=== PATIENT | female | born 1960 | race Caucasian/White ===

== ENCOUNTER 2024-04-05 14:29 | Emergency (ER) | payer MEDICARE, SELFPAY ==
[2024-04-05 14:57] VITALS: BP 96/58; PULSE 94; RESP 15; TEMP 36.3; O2SAT 96
--- NOTE | 2024-04-05 15:03 | ED.FEMALEGU ---
HPI - Female Genitourinary General Chief complaint: Urogenital-Female Stated complaint: Bladder infection Time Seen by Provider: 04/05/24 15:06 Source: patient, RN notes reviewed and old records reviewed Mode of arrival: ambulatory Limitations: no limitations History of Present Illness HPI Narrative: 63 year old female presents to [facility] care with complaints of 4 day history of burning with urination and decreased output. Patient reports that she has had UTI's in the past. Patient reports that does not have any lower back pain or any CVA tenderness, denies any suprapubic pressure. Patient voices no vaginal discharge or any concern for STD's. Patient reports that she does have kidney disease stage III.Patient reports no nausea and vomiting, denies any fevers. MD elicited complaint: dysuria and other (viding decreased amounts) Pertinent past history: other (past UTI's) Onset (ago): day(s) (4) Location of symptoms: urethra Vaginal discharge: none Treatment prior to arrival: none Related Data Home Medications Medication Instructions Recorded Confirmed atorvastatin 40 mg tablet mg 04/05/24 hydrocodone 5 mg-acetaminophen 325 tablet 04/05/24 mg tablet levothyroxine 50 mcg tablet mcg 04/05/24 Allergies Allergy/AdvReac Type Severity Reaction Status Date / Time aspirin Allergy Rash Verified 04/05/24 15:00 Review of Systems Review of Systems: CONSTITUTIONAL: Denies fever, chills, or sweats. CARDIOVASCULAR: Denies chest pain, palpitations, or edema. RESPIRATORY: Denies cough or dyspnea. GASTROINTESTINAL: Denies abdominal pain, nausea, vomiting, or diarrhea. GENITOURINARY: Reports dysuria, frequency, urgency voiding in small amounts. Denies flank pain or hematuria. SKIN: Denies rash or itching. MUSCULOSKELETAL: Denies back pain or myalgia. Denies CVA tenderness NEUROLOGIC: Denies headache All systems reviewed & are unremarkable except as noted in HPI and below [facility] Past Medical History Medical History (Updated 04/06/24 @ 18:00 by Padma Clay NP) Anxiety and depression CHF (congestive heart failure), NYHA class II Chronic kidney disease, stage III (moderate) COPD (chronic obstructive pulmonary disease) reports never smoked Elevated cholesterol Hypothyroidism Osteoarthritis of right hip Social History Social History (Updated 04/06/24 @ 17:54 by Padma Clay NP) Smoking status: Never smoker Substance use type: does not use Gender identity (if verbalized by the patient): Female Comments At time of signature, agree with nursing past medical, surgical, social and family history. There is no relevant family history pertinent to the presenting complaint Exam Narrative: GENERAL: Well-appearing, well-nourished, and in no acute distress. HEAD: Normocephalic, atraumatic. NECK: Supple.no lymphadenopathy CHEST: Clear to auscultation. No respiratory distress.SAO2 96% on room air HEART: Regular rate and rhythm. No murmur heard. Normal peripheral pulses. ABDOMEN: Soft, nontender, nondistended, normal active bowel sounds. No CVA tenderness urinary burning with voiding in small amounts, no CVA tenderness EXTREMITIES: Normal range of motion. No edema. SKIN: Warm, dry, no rash. NEURO: No focal deficits. Alert and oriented x3. Course Course Emergency Course: Patient is aware of diagnosis, understands and agrees to treatment plan.? Anticipatory guidance given.? Patient agrees to follow-up as directed and is aware of reasons to seek care at the emergency department. Portions of this record may have been created with voice recognition software Level of Care: Express Care Visit Vital Signs Vital signs: Vital Signs Temperature 36.3 C L 04/05/24 14:57 Pulse Rate 94 04/05/24 14:57 Respiratory Rate 15 04/05/24 14:57 Blood Pressure 96/58 L 04/05/24 14:57 Pulse Oximetry 96 04/05/24 14:57 Oxygen Delivery Room Air 04/05/24 14:57 Temperature 36.3 C L 04/05/24 14:57 Pulse Rate
[2024-04-05 15:32] LABS: EDUAAPPEAR Clear; EDUABILI 1+ (Negative); EDUABLOOD 2+ (Negative); EDUACOLOR1 Yellow; EDUAGLUCOSE Negative (Negative); EDUAKETONE Trace (Negative); EDUALEUKO 2+ (Negative); EDUANITRATE Negative (Negative); EDUAPH 5.5; EDUAPROTEIN 1+ (Negative); EDUAUROBILI 0.2
== END 2024-04-05 15:28 | disposition home or self-care (01) ==
PROVIDERS: Emergency Provider Registered Nurse
DX: N39.0 Urinary tract infection, site not specified (principal); I50.9 Heart failure, unspecified; N18.30 Chronic kidney disease, stage 3 unspecified; J44.9 Chronic obstructive pulmonary disease, unspecified; E78.00 Pure hypercholesterolemia, unspecified; E03.9 Hypothyroidism, unspecified; M16.11 Unilateral primary osteoarthritis, right hip
CPT/HCPCS: 81003; 87086; 99203; G0463

== ENCOUNTER 2024-08-27 11:12 | Emergency (ER) | payer MEDICARE, SELFPAY ==
[2024-08-27 11:29] VITALS: BP 88/56; PULSE 72; RESP 18; TEMP 36.5; O2SAT 97
--- OUTSIDE RECORDS SUMMARY | 2024-08-27 11:52 | XMS_ITS | Referral Summary ---
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 Gender Identity Not on file Sexual Orientation Not on file Last Filed Vital Signs Vital Sign Reading Time Taken Comments Blood Pressure 135/66 02/10/2022 8:07 PM CDT Pulse 61 02/10/2022 8:07 PM CDT Temperature 36.6 ??C (97.8 ??F) 02/10/2022 7:20 PM CD T Respiratory Rate 15 02/10/2022 8:07 PM CDT Oxygen Saturation 93% 02/10/2022 8:07 PM CDT Inhaled Oxygen Concentration - - Weight 130.2 kg (287 lb) 02/10/2022 3:01 PM CDT Height 160 cm (5' 3 ) 02/10/2022 3:01 PM CDT Body Mass Index 50.84 02/10/2022 3:01 PM CDT Plan of Treatment Not on file Insurance [employer] MED[employer] PPO [employer] MED[employer] PPO [employer] PPO Care Teams Family Day Care Provider Relationship Specialty [place] [address] [place] [address] PCP - General Nurse Practitioner 02/14/24
--- OUTSIDE RECORDS SUMMARY | 2024-08-27 11:52 | XMS_ITS | Clinical Summary ---
Author Organization [facility] Address [facility] [place] [address] [place] [address] Care Team Providers Care Bolting Machine Operator Name Role Phone Yvette Colon NP Primary Care Provider + [phone] Christ Niño MD Unavailable [phone] Allergies Active Allergy Reactions Criticality Noted Date Comments Aspirin Rash Medium 06/19/2017 Rash Medications albuterol sulfate HFA 108 (90 Base) MCG/ACT inhalerIndications :Chronic obstructive pulmonary disease, unspecified COPD type ([facility] HHS/HCC) Inhale 2 puffs into the lungs every 4 (four) hours as needed for Wheezing or Shortness of breath. Use with spacer. 18 g 3 11/10/19 24 Active ARIPiprazole (ABILIFY) 5 MG tabletIndications: PTSD (post-traumatic stress disorder) Take 1 tablet (5 mg total) by mouth daily. 90 tablet 11/10/19 24 Active atorvastatin (LIPITOR) 40 MG tabletIndications: Chronic congestive heart failure, unspecified heart failure type ([facility]/HCC HHS/HCC),Mixed hyperlipidemia Take 1 tablet (40 mg total) by mouth daily. 90 tablet 3 11/10/19 24 Active carvedilol (COREG) 6.25 MG tabletIndications: Chronic congestive heart failure, unspecified heart failure type ([facility] HHS/HCC) Take 1 tablet (6.25 mg total) by mouth 2 (two) times daily with meals. 180 tablet 3 11/10/19 24 Active diclofenac sodium (VOLTAREN) 1 % gelIndications:Art hritis of right hip Apply 4 g topically 4 (four) times daily. 350 g 3 11/10/19 24 Active levothyroxine (SYNTHROID) 50 MCG tabletIndications: Acquired hypothyroidism Take 1 tablet (50 mcg total) by mouth every morning. 90 tablet 1 11/10/19 24 Active oxybutynin (DITROPAN) 5 MG tabletIndications: Overactive bladder Take 1 tablet (5 mg total) by mouth 2 (two) times daily. 180 tablet 3 11/10/19 24 Active pantoprazole EC (PROTONIX) 40 MG tabletIndications: Gastric reflux Take 1 tablet (40 mg total) by mouth every morning before breakfast. 90 tablet 3 11/10/19 24 Active potassium chloride CR (KLOR-CON M) 20 MEQ tabletIndications: Chronic congestive heart failure, unspecified heart failure type (CMS/HCC HHS/HCC),Chronic kidney disease, unspecified CKD stage Take 1 tablet (20 mEq total) by mouth daily. 90 tablet 1 11/10/19 24 Active Cholecalciferol (VITAMIN D) 125 MCG (5000 UT) CapIndications:Vit henry D deficiency Take 5,000 Units by mouth daily. 90 capsule 1 11/13/19 24 Active cyclobenzaprine (FLEXERIL) 5 MG tablet 04/30/20 24 Active ferrous sulfate, 65 mg elemental, 325 (65 FE) MG tablet daily. Active naloxegol oxalate (MOVANTIK) 25 MG tabletIndications: Drug-induced constipation,Chron ic, continuous use of opioids Take 1 tablet (25 mg total) by mouth every morning before breakfast. 90 tablet 1 05/06/20 24 Active ondansetron (ZOFRAN-ODT) 4 MG disintegrating tabletIndications: Nausea Take 1 tablet (4 mg total) by mouth every 8 (eight) hours as needed for Nausea. 20 tablet 1 05/06/20 24 Active DULoxetine (CYMBALTA) 20 MG capsuleIndications :PTSD (post-traumatic stress disorder) Take 1 capsule (20 mg total) by mouth daily. 90 capsule 1 05/06/20 24 Active tirzepatide (MOUNJARO) 7.5 MG/0.5ML injectionIndicatio ns:Diabetes Mellitus Inject 7.5 mg into the skin every 7 days. Indications: Diabetes 2 mL 08/12/19 25 Active HYDROcodone-acetam inophen (NORCO) 5-325 MG tabletIndications: Chronic Pain Take 1 tablet by mouth every 8 (eight) hours as needed for Pain. Indications: Chronic Pain 90 tablet 08/13/19 25 Active SYMBICORT 160-4.5 MCG/ACT inhalerIndications :Chronic obstructive pulmonary disease, unspecified COPD type ([facility]) Inhale 2 puffs into the lungs 2 (two) times daily. 10.2 g 08/21/19 25 Active valsartan (DIOVAN) 40 MG tabletIndications: Primary hypertension Take 1 tablet (40 mg total) by mouth every morning. 90 tablet 1 08/23/19 25 Active valsartan (DIOVAN) 40 MG tabletIndications: Primary hypertension Take 1 tablet (40 mg total) by mouth every morning. 90 tablet 1 02/12/20 24 025 Discontin ued(Reord er) SYMBICORT 160-4.5 MCG/ACT inhalerIndications :Chronic obstructive pulmonary disease, unspecified COPD type ([facility]) Inhale 2 puffs into the lungs 2 (two) times daily. 10.2 g 06/12/20 24 025 Discontin ued(Reord er) HYDROcodone-acetam inophen (NORCO) 5-325 MG tabletIndications: Chronic Pain Take 1 tablet by mouth every 8 (eight) hours as needed for Pain. Indications: Chronic Pain 90 tablet 07/15/20 24 025 Discontin ued(Reord er) tirzepatide (MOUNJARO) 7.5 MG/0.5ML injectionIndicatio ns:Diabetes Mellitus Inject 7.5 mg into the skin every 7 days. Indications: Diabetes 2 mL 07/15/20 24 025 Discontin ued(Reord er) Active Problems Problem Noted Date Diagnosed Date Hiatal hernia 08/09/2024 Nausea 05/06/2024 Ileus ([facility]) 05/06/2024 Thickened endometrium 05/06/2024 Lesion of left white earth kidney 05/06/2024 Lung nodules 05/06/2024 Drug-induced constipation 05/06/2024 Chronic, continuous use of opioids 05/06/2024 Type 2 diabetes mellitus wit h hyperglycemia, without long-term current use of insulin ([facility]) 02/19/2024 Lumbar radiculopathy 02/02/2024 Paresthesia of both lower extremities 02/02/2024 Numbness and tingling of both lower extremities 01/16/2024 Weakness of both lower extremities 01/16/2024 Functional tremor 11/10/2023 Chronic kidney disease, unspecified CKD stage Chronic obstructive pulmonar y disease, unspecified COPD type ([facility]) 11/10/2023 Morbid obesity with BMI of 4 0.0-44.9, adult ([facility]) 11/10/2023 Assessment & Plan (01/16/2024 6:14 PM CDT): We discussed the adverse effects of weight on osteoarthritis. For every 1 pound loss, 4 to 6 pounds of stress is relieved from the knee, slightly more at the ankle and slightly less at the hip. We discussed low carbohydrate diet to help with weight loss. 80% of weight loss is through diet. Primary osteoarthritis of right hip 11/10/2023 Assessment & Plan (01/16/2024 6:15 PM CDT): We discussed the risks, benefits, and alternatives. The only thing proven to slow the progression of osteoarthritis is weight loss. Every pound lost relieves 4 to 6 pounds of stress across the hip. We discussed formal physical therapy to help with flexibility, mobility, and strength. We discussed TENS units. Nonsteroidal anti-inflammatories as well as Tylenol and pain medication and their side effects. We discussed steroid injection. We discussed eventual total hip arthroplasty. Recommendation at this time, we're gonna get her set up for an EMG-NCV, MRI to the lumbar spine, and get her started with formal physical therapy. We'll see her back after that. Vitamin D deficiency 11/10/2023 Prediabetes 11/10/2023 Primary hypertension 11/10/2023 Gastric reflux 11/10/2023 CHF (congestive heart failure) ([facility]) 09/08/2023 Acute on chronic systolic heart failure ([facility]) 11/17/2022 Chronic HFrEF (heart failure with reduced ejection fraction) ([facility]) 11/09/2022 Shortness of breath 11/09/2022 Weakness 11/09/2022 Hypotension due to medication 10/28/2021 Hyperlipidemia 10/06/2021 Anemia 07/22/2020 Stage 3a chronic kidney disease ([facility] ) 07/22/2020 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 08/09/2017 Assessment & Plan (08/09/2017 10:51 PM CONSUMER LENDER): Chronic; pt reports compliance - continue home statin Overactive bladder 08/09/2017 Assessment & Plan (08/09/2017 10:52 PM CONSUMER LENDER): Chronic; controlled - Continue from ambulatory PTSD (post-traumatic stress disorder) 08/09/2017 Assessment & Plan (08/09/2017 10:52 PM CONSUMER LENDER): Chronic; well controlled per pt - Continue from ambulatory Hypothyroidism 08/09/2017 Assessment & Plan (08/09/2017 10:52 PM CONSUMER LENDER): Chronic; controlled - Check TSH - Continue home levothyroxine Resolved Problems Problem Noted Date Diagnosed Date Resolved Date Chest pain 09/25/2022 09/27/2022 Chest pain made worse by breathing 08/09/2017 08/11/2017 Assessment & Plan (08/10/2017 12:31 AM CONSUMER LENDER): 56 yo F with PMH of PTSD, CAD with hx of [place] found at the time of a prior Stress test with no stenting or CABG, hypothyroid presents to the ED after 1 week of fatigue and 1 day of constant dull chest pain, substernal, made worse by breathing and with tenderness of palpation of the sternum. She has no DM, Never smoked and unknown paternal hx with negative maternal hx of [place] or Stroke. She is overweight on a statin. Pt has negative D-dimer. Differential includes Costrocondritis, Pain from coughing and acute [place]. - Admit for observation - Trend troponin x 3 - Morphine for Chest pain - Allergic to ASA - Lipids - A1c - NM waking stress test given hx of old [place] in past - Obtain records from [facility] about last Stress test. - O2 as needed Encounters Date Type Department Care Team Description 08/23/2024 Orders Only [facility] [address] [place] [phone] Yvette Colon NP 08/19/2024 10:35 AM CONSUMER LENDER - 08/19/2024 11:59 PM CONSUMER LENDER Hospital Encounter [facility] [address] [place] [address] Yvette Colon, Debbie Patel, PT Low Back Pain Discharge Disposition: Home or Self Care (Routine Discharge) 08/19/2024 Travel 08/15/2024 [facility]phone [facility] - [address], [address] [place] [phone] Iban Rhodes MD Prior Authorization ([id number]) 08/14/2024 Telephone [facility] [address] [place] [address] Ashley Duncan, PT Referral 08/09/2024 2:20 PM CONSUMER LENDER Office Visit [facility] [address] [phone] Iban Rhodes MD New Patient (NEW PATIENT) 08/09/2024 [facility] - [address], [address] [place] [phone] Iban Rhodes MD 08/09/2024 Travel 07/12/2024 7:57 AM CONSUMER LENDER - 07/12/2024 11:59 PM CONSUMER LENDER Hospital Encounter [facility] MRI [address] [place] [address] Yvette Colon NP Discharge Disposition: Home or Self Care (Routine Discharge) 07/12/2024 Travel 07/03/2024 Orders Only [facility] [address] [place] [phone] Yvette Colon NP 06/26/2024 8:45 AM CONSUMER LENDER - 06/26/2024 11:59 PM CONSUMER LENDER [place] [address] [place] [address] Yvette Colon NP Discharge Disposition: Home or Self Care (Routine Discharge) 06/26/2024 Travel 06/13/2024 Telephone [facility] [address] [place] [phone] Yvette Colon, DRY GOODS INSPECTOR Refill Request 06/11/2024 Telephone [facility] [address] [place] [address] Debbie Nolen, [place] Appointment Reminder (See previous call noted) 06/04/2024 2:20 PM CONSUMER LENDER Office Visit [facility] [address] [place] [phone] Yvette Colon NP Follow Up (1 month follow up T2DM) 06/04/2024 11:45 AM CONSUMER LENDER Office Visit [facility] [address] [phone] Christ Niño MD Follow Up; Coronary Artery Disease; CHF 06/04/2024 Travel 06/03/2024 12:41 PM CONSUMER LENDER - 06/03/2024 11:59 PM CONSUMER LENDER Hospital Encounter [facility] [address] [place] [address] Christoph Moreno DO Meyer, Beverly L, PT Back Pain Discharge Disposition: Home or Self Care (Routine Discharge) 06/03/2024 Scan [employer] INFO SRVCS Scanned, [facility] 06/03/2024 Travel 05/28/2024 12:19 PM CONSUMER LENDER - 05/28/2024 11:59 PM CONSUMER LENDER [place] [address] [place] [address] Isaiah, Yvette J, DRY GOODS INSPECTOR Discharge Disposition: Home or Self Care (Routine Discharge) 05/28/2024 Travel 05/27/2024 Telephone [facility] [address] [place] [phone] Yvette Colon NP Medication Request from Last 3 Months Immunizations Name Administration Dates Next Due Fluzone (IIV3, Trivalent, 0. 5 ML Prefilled Syringe) 05/06/2024 Hepatitis A/Hepatitis B(Twinrix) 12/22/2009 Influenza (Generic) 05/08/2012 Influenza Adult (Generic) 06/20/2022,04/2022,07/14/2020, 017 MODERNA COVID-19 (12+) MRNA, LNP-S, PF, 100 MCG/ 0.5 ML DOSE 06/23/2021 PFIZER COVID-19 (12+) MRNA, LNP-S, PF, BOLA-SUCROSE, 30 MCG/0.3 ML (COMIRNATY) 06/04/2024 PFIZER COVID-19 (ORIGINAL FORMULATION, PURPLE CAP) mRNA, LNP-S, PF, 30 MCG/0.3 ML DOSE 12/22/2020,11/28/2020 Family History Medical History Relation Comments Hyperlipidemia Mother Hypertension Mother Diabetes Son Relation Status Comments Father Mother Alive Son Social History Tobacco Use Types Packs/Day Years Used Date Smoking Tobacco: Never Passive Smoke Exposure: Never Smokeless Tobacco: Never Tobacco Cessation:Counseling Given: No Alcohol Use Standard Drinks/Week Comments No 0 (1 standard drink = 0.6 oz pur e alcohol) Humiliation, Afraid, Rape, and Kick questionnair e Answer Date Recorded Within the last year, have y ou been afraid of your partner or ex-partner? No 09/25/2022 Within the last year, have y ou been humiliated or emotionally abused in other ways by your partner or ex-partner? No Within the last year, have y ou been kicked, hit, slapped, or otherwise physically hurt by your partner or ex-partner? No 09/25/2022 Within the last year, have y ou been raped or forced to have any kind of sexual activity by your partner or ex-partner? No 09/25/2022 Social Connection and Isolat ion Panel [NHANES] Answer Date Recorded In a typical week, how many times do you talk on the phone with family, friends, or neighbors? More than three times a week 09/25/2022 How often do you get togethe r with friends or relatives? Once a week 09/25/2022 How often do you attend chur ch or mu-ism services? More than 4 times per year 09/25/2022 Do you belong to any clubs o r organizations such as oriental orthodox groups, unions, fraternal or athletic groups, or school groups? No 09/25/2022 How often do you attend meet ings of the clubs or organizations you belong to? Never 09/25/2022 Are you , , di vorced, , never , or living with a partner? 09/25/2022 AUDIT-C Answer Date Recorded Q1: How often do you have a drink containing alcohol? Never 09/25/2022 Q2: How many drinks containi ng alcohol do you have on a typical day when you are drinking? Patient does not drink Q3: How often do you have si x or more drinks on one occasion? Never 09/25/2022 Overall Financial Resource Strain (CARDIA) Answe r Date Recorded How hard is it for you to pa y for the very basics like food, housing, medical care, and heating? Hard 09/25/2022 PHQ-2 Answer Date Recorded Patient Health Questionnaire-2 Score 0 08/09/2024 [facility] Occupat ional [facility] - Occupational Stress Questionnaire Answer Date Recorded Do you feel stress - tense, restless, nervous, or anxious, or unable to sleep at night because your mind is troubled all the time - these days? Rather much 09/25/2022 Exercise Vital Sign Answer Date Recorde d On average, how many days pe r week do you engage in moderate to strenuous exercise (like a brisk walk)? 0 days 09/25/2022 On average, how many minutes do you engage in exercise at this level? 0 min 09/25/2022 Hunger Vital Sign Answer Date Recorded Within the past 12 months, y ou worried that your food would run out before you got the money to buy more. Sometimes true Within the past 12 months, t he food you bought just didn't last and you didn't have money to get more. Sometimes true 11/2022 PRAPARE - Transportation Answer Date Re corded In the past 12 months, has l ack of transportation kept you from medical appointments or from getting medications? Yes 11/2022 In the past 12 months, has l ack of transportation kept you from meetings, work, or from getting things needed for daily living? Yes 09/25/2022 Housing Stability Vital Sign Answer Anurag e Recorded In the last 12 months, was t here a time when you were not able to pay the mortgage or rent on time? No 09/25/2022 In the last 12 months, how many places have you lived? 2 09/25/2022 In the last 12 months, was t here a time when you did not have a steady place to sleep or slept in a prison (including now)? No 09/25/2022 Comments No Sex and Gender Information Value Date Recorded Sex Assigned at Female 08/14/2024 11:46 AM CONSUMER LENDER Legal Sex Female 4:40 PM CDT Gender Identity Not on file Sexual Orientation Not on file Last Filed Vital Signs Vital Sign Reading Time Taken Comments Blood Pressure 98/60 08/09/2024 2:15 PM CONSUMER LENDER Pulse 85 08/09/2024 2:15 PM CONSUMER LENDER Temperature 36.9 ??C (98.4 ??F) 08/09/2024 2:15 PM CS T Respiratory Rate 18 08/09/2024 2:15 PM CONSUMER LENDER Oxygen Saturation 95% 08/09/2024 2:15 PM CONSUMER LENDER Inhaled Oxygen Concentration - - Weight 113.9 kg (251 lb) 08/09/2024 2:15 PM CONSUMER LENDER Height 172.7 cm (5' 8 ) 08/09/2024 2:15 PM CONSUMER LENDER Body Mass Index 38.16 08/09/2024 2:15 PM CONSUMER LENDER Plan of Treatment Upcoming Encounters Date Type Department Care Team (Latest Contact Info) Description 09/03/2024 10:15 AM CONSUMER LENDER Office Visit [facility] [address] [place] [phone] Christ Niño MD [address] [facility] [address] [place] [phone] 09/03/2024 1:45 PM CONSUMER LENDER Appointment [facility] [address] [place] [address] Yvette Colon, DRY GOODS INSPECTOR [address] [facility] [address] [address] [place] [address] [place] [address] 09/06/2024 1:45 PM CONSUMER LENDER Appointment [facility] [address] [place] [address] Yvette Colon, DRY GOODS INSPECTOR [address] [facility] [address] [facility] [place] [address] [place] [address] [place] [address] 09/09/2024 1:00 PM CONSUMER LENDER Appointment [facility] [address] [place] [address] Yvette Colon, DRY GOODS INSPECTOR [address] [facility] [address] [place] [address] [place] [address] [place] [address] 09/10/2024 2:20 PM CONSUMER LENDER Office Visit [facility] [place] [address] [place] [phone] Yvette Colon, DRY GOODS INSPECTOR [address] [facility] [address] [address] 09/11/2024 11:35 AM CONSUMER LENDER Hospital Encounter [facility] [address] [place] [address] Iban Rhodes MD [address] [address] 09/11/2024 11:35 AM CONSUMER LENDER - 09/11/2024 12:00 PM CONSUMER LENDER Surgery [facility] [address] [place] [address] Iban Rhodes MD [address] [address] EGD 09/12/2024 1:00 PM CONSUMER LENDER Appointment [facility] [address] [place] [address] Yvette Colon, DRY GOODS INSPECTOR [address] [facility] [address] [address] [place] [address] [place] [address] 09/16/2024 1:00 PM CONSUMER LENDER Appointment [facility] [address] [place] [address] Yvette Colon, DRY GOODS INSPECTOR [address] [facility] [address] [address] [place] [address] [place] [address] 09/19/2024 1:45 PM CONSUMER LENDER Appointment [facility] [address] [facility] [address] [place] [address] [place] [address] [place] [address] [place] [address] 09/23/2024 2:00 PM CONSUMER LENDER Appointment [facility] [address] [place] [address] Yvette Colon, MALIA [address] [address] [place] [address] [facility] [place] [address] 09/26/2024 1:00 PM CONSUMER LENDER Appointment [facility] [address] [place] [address] Yvette Colon, MALIA [address] [facility] [place] [address] [place] [address] [facility] [place] [address] 10/04/2024 1:00 PM CDT Appointment [facility] [address] [place] [address] Yvette Colon, MALIA [address] [address] [place] [address] [place] [address] Scheduled Procedures Name Priority Associated Diagnoses Date/Ti me EGD Hiatal hernia 09/11/2024 11:35 AM CONSUMER LENDER Health Maintenance Due Date Last Done Comments Cervical Cancer Screening Pap Smear (Age 30 to 64) Every 3 Years 1961 Colorectal Cancer Screening Colonoscopy (10 Years) 1961 Annual Physical 1964 Pneumococcal Vaccine: Pediatrics (0 to 5 Years) and At-Risk Patients (6 to 64 Years) (1 of 2 - PCV) 1967 Diabetes: Retinopathy Eye Exam 1979 Hepatitis C 1979 Cervical Cancer Screening Pap with HPV Testing (Age 30 to 64) Every 5 Years 1991 Cervical Cancer Screening with HPV 1991 ASCVD LDL 09/27/2023 09/26/2022, 08/10/2017 Lipid Panel 08/01/2024 08/01/2023, 0312/2022, 08/10/2017 Hemoglobin A1C 11/04/2024 05/06/2024, 10/22, 08/01/2023, Additional history exists DTaP, Tdap and Td Vaccines (1 - Tdap) 11/09/2024 Postponed from 1980 (Patient Refused) RSV Immunization or 60+ Years (1 - Risk 60-74 years 1-dose series) 11/09/2024 Postponed fro m 2021 (Patient Refused) Zoster Vaccines (1 of 2) 11/09/2024 Pos tponed from 2011 (Patient Refused) Kidney Health Evaluation 05/06/2025 05/06/2024 Mammogram Screening 06/02/2025 06/02/2023 Influenza Adult Completed 05/06/2024, 05/25, 09/02/2021, Additional history exists COVID-19 Vaccine Completed 06/04/2024, 06/2022, 06/23/2021, Additional history exists PHQ-2 (Physician [place]) Completed 08/09/2024 Meningococcal B Vaccine Aged Out No l onger eligible based on patient's age to complete this topic Meningococcal Vaccine Aged Out No ciro kimberley eligible based on patient's age to complete this topic RSV Immunizations Under 20 Months Aged Out No longer eligible based on patient's age to complete this topic Procedures Procedure Name Priority Date/Time Associated Diagnosis Comments MRI ABD WWO CON Routine 07/12/2024 8:56 AM CONSUMER LENDER Lesion of left white earth kidney CREATININE WHOLE BLOOD Routine 9:26 AM CONSUMER LENDER Lesion of left white earth kidney CT ABD+PEL WWO CON Routine 06/26/2024 9: 25 AM CONSUMER LENDER Lesion of left [place] kidney US PELVIC NON OB COMP TA+TV Routine 05/28/2024 2:24 PM CONSUMER LENDER Thickened endometrium US RETROPERITONEAL COMP Routine 05/28/20 2:24 PM CONSUMER LENDER Lesion of left white earth kidney CT CHEST WO LUNG NOD FLUP Routine 05/28/2024 12:32 PM CONSUMER LENDER Lung nodules HEMOGLOBIN, GLYCOSYLATED Routine 05/06/2024 Type 2 diabetes mellitus with hyperglycemia, without long-term current use of insulin ([facility]/HCC HHS/HCC) LIPID PANEL Routine 09/26/2022 5:06 AM CONSUMER LENDER from Last 3 Months or Most Recently Relevant to Health Maintenance Results * MRI ABD WWO CON (07/12/2024 8:56 AM CONSUMER LENDER) Anatomical Region Laterality Modality Abdomen Magnetic Resonan ce 07/18/2024 12:1 1 PM CONSUMER LENDER Impressions 07/18/2024 12:17 PM CONSUMER LENDER IMPRESSION: Tiny nodule located anterior to the left kidney is separate from the kidney and would represent a benign tiny lymph node in the perinephric fossa. This is stable from 02/19/2024. Tiny benign-appearing probable cyst of the outer mid left kidney and upper pole left kidney. Okay for same MRI follow-up in one year. No evidence of renal tumor. Ordered By: YVETTE COLON Interpreted By: Lorenzo Garnett MD, 07/18/2024 12:11 PM Narrative 07/18/2024 12:17 PM CONSUMER LENDER [facility] [address] [place] [address] Examination: MRI ABD WWO CON Exam time: 07/12/2024 8:00 AM Clinical history: Left renal lesions evaluation Comparison: 06/26/2024, alejo 524, 05/01/2024, 02/19/2024 Technique: MRI abdomen with and without IV contrast. 20 mL MultiHance. Findings: Tiny nodule anterior to the left kidney has a thin fat the nodule from the kidney cortex. This is best seen on 02/19/2024 lumbar spine MRI. This would indicate a small lymph node in the perinephric fossa. Currently, see series 5 image 21-22. The 1 cm cystic nodule of the outer mid left kidney is too small to fully characterize by MRI, but demonstrates no obvious enhancement. See series 16 image 45. A tiny nonenhancing focus in the upper pole left kidney is also too small to fully characterize. See series 16 image 35. These are likely cysts and benign. Okay to follow-up in 12 months. No renal mass. No obstruction. No adrenal mass. Large hiatal hernia. No pancreatic abnormalities. Gallbladder has been removed. No bile duct stone or dilatation. No liver mass or cirrhosis or fatty changes. No splenic enlargement. No ascites. No GI tract obstruction. No adenopathy. No abdominal aortic aneurysm. Patent vasculature, including veins and arterial branches. No lower thorax effusions. No bone lesion. Degenerative changes with mild scoliosis in the spine. Procedure Note Lorenzo Garnett MD - 07/18/2024 [facility] [address] [place] [id number] Examination: MRI ABD WWO CON Exam time: 07/12/2024 8:00 AM Clinical history: Left renal lesions evaluation Comparison: 06/26/2024, alejo 524, 05/01/2024, 02/19/2024 Technique: MRI abdomen with and without IV contrast. 20 mL MultiHance. Findings: Tiny nodule anterior to the left kidney has a thin fatseparating the nodule from the kidney cortex. This is best seen on02/19/2024 lumbar spine MRI. This would indicate a small lymph node in theperinephric fossa. Currently, see series 5 image 21-22. The 1 cm cysticnodule of the outer mid left kidney is too small to fully characterize byMRI, but demonstrates no obvious enhancement. See series 16 image 45. Atiny nonenhancing focus in the upper pole left kidney is also too small tofully characterize. See series 16 image 35. These are likely cysts andbenign. Okay to follow-up in 12 months. No renal mass. No obstruction. Noadrenal mass. Large hiatal hernia. No pancreatic abnormalities.Gallbladder has been removed. No bile duct stone or dilatation. No livermass or cirrhosis or fatty changes. No splenic enlargement. No ascites. NoGI tract obstruction. No adenopathy. No abdominal aortic aneurysm. Patentvasculature, including veins and arterial branches. No lower thoraxeffusions. No bone lesion. Degenerative changes with mild scoliosis in thespine. IMPRESSION: Tiny nodule located anterior to the left kidney is separate from thekidney and would represent a benign tiny lymph node in the perinephricfossa. This is stable from 02/19/2024. Tiny benign-appearing probable cyst of the outer mid left kidney and upperpole left kidney. Okay for same MRI follow-up in one year. No evidence of renal tumor. Ordered By: YVETTE COLON Interpreted By: Lorenzo Garnett MD, 07/18/2024 12:11 PM Yvette Colon NP MRI Final Result * (ABNORMAL) CREATININE WHOLE BLOOD (Radiology only) (06/26/2024 9:26 AM CONSUMER LENDER) CREATININE WHOLE BLOOD 1.4(H) 0.6 - 1.2 MG/DL 06/26/2024 9:15 PM CONSUMER LENDER [facility] 06/26/2024 9:26 AM CONSUMER LENDER us Yvette Colon NP LABORATORY Final Result [facility] [address] [place] [address], * CT ABD+PEL WWO CON (06/26/2024 9:25 AM CONSUMER LENDER) Anatomical Region Laterality Modality Abdomen Computed Tomogra phy 06/28/2024 10:2 3 AM CONSUMER LENDER Impressions 06/28/2024 10:43 AM CONSUMER LENDER IMPRESSION: There are 2 less than 1 cm lesions within the left kidney. Difficult to characterize as detailed above. Follow-up with MRI of the kidneys. Follow-up with CT chest for lung base nodules. Ordered By: YVETTE COLON Interpreted By: Gurjit Tyler, 06/28/2024 10:23 AM Narrative 06/28/2024 10:43 AM CONSUMER LENDER [facility] [address] [place] [address] EXAMINATION: CT ABDOMEN AND PELVIS WITH AND WITHOUT CONTRAST EXAM DATE/TIME: 06/26/2024 9:11 AM REASON FOR EXAM: ??Left renal lesion measuring 1.0 cm ? Follow-up. COMPARISON: Noncontrast CT abdomen and pelvis of 05/01/2024. Renal ultrasound of 05/28/2024 TECHNIQUE: A dose lowering technique was used for this procedure, which may include, but is not limited to, dose reduction technique, automated exposure control, iterative reconstruction, ALARA (As Low As Reasonably Achievable), or Image Gently techniques. Axial imaging of the abdomen and pelvis was obtained before and after 75 mL of Isovue-370 was injected. Post contrast imaging was obtained in corticomedullary and excretory phase of renal excretion.Due to technical factors, delayed imaging was obtained 3 hours. FINDINGS: Without contrast:No evidence of hemorrhage or obstructive or nonobstructive urolithiasis. Abdomen: Right kidney is grossly within normal limits. Within the lateral mid left kidney there is well-defined low-density lesion with questionable enhancement. Due to its size is difficult to characterize. Measures 9.0 x 8.1 mm. There is also another low-density exophytic lesion at the anterior and superior left kidney. Also questionable mild enhancement. Measures 8.5 x 7.4 mm. Follow-up with MRI would be of benefit. Stable large hiatal hernia containing the entire stomach measuring up to 13 cm. No complicating features. Grossly normal duodenum. Pancreas grossly unremarkable. Cholecystectomy. Grossly normal spleen. Hepatic parenchyma are within normal limits with no evidence of intrahepatic biliary dilatation or mass. Portal vein patent. No mesenteric lymphadenopathy or evidence of small bowel obstruction. No free fluid or free air. No evidence of retroperitoneal lymphadenopathy. No evidence of an abdominal aortic aneurysm. Scattered fecal material and gas throughout the colon without evidence of mass or dilatation. Appendix not inflamed. Pelvis: ??Opacified urinary bladder without gross abnormality. Uterus without focal mass. Thickened endometrium again identified at 1.2 cm. Please see pelvic ultrasound of 05/28/2024. On bone windows, no evidence of suspicious skeletal lesion or acute compression fracture deformity. Limited evaluation of the lower thorax demonstrates no acute abnormality. Stable multiple noncalcified less than 3 mm nodules in both lung bases. Follow-up with CT chest. Procedure Note Jatin Tyler MD - 06/28/2024 [facility] [address] [facility] [address] EXAMINATION: CT ABDOMEN AND PELVIS WITH AND WITHOUT CONTRAST EXAM DATE/TIME: 06/26/2024 9:11 AM REASON FOR EXAM: Left renal lesion measuring 1.0 cm Follow-up. COMPARISON: Noncontrast CT abdomen and pelvis of 05/01/2024. Renalultrasound of 05/28/2024 TECHNIQUE: A dose lowering technique was used for this procedure, whichmay include, but is not limited to, dose reduction technique, automatedexposure control, iterative reconstruction, ALARA (As Low As ReasonablyAchievable), or Image Gently techniques. Axial imaging of the abdomen and pelvis was obtained before and after 75mL of Isovue-370 was injected. Post contrast imaging was obtained incorticomedullary and excretory phase of renal excretion.Due to technicalfactors, delayed imaging was obtained 3 hours. FINDINGS: Without contrast:No evidence of hemorrhage or obstructive ornonobstructive urolithiasis. Abdomen: Right kidney is grossly within normal limits. Within the lateral mid left kidney there is well-defined low-densitylesion with questionable enhancement. Due to its size is difficult tocharacterize. Measures 9.0 x 8.1 mm. There is also another low-density exophytic lesion at the anterior andsuperior left kidney. Also questionable mild enhancement. Measures 8.5 x7.4 mm. Follow-up with MRI would be of benefit. Stable large hiatal hernia containing the entire stomach measuring up to13 cm. No complicating features. Grossly normal duodenum. Pancreas grossly unremarkable. Cholecystectomy. Grossly normal spleen. Hepatic parenchyma are within normal limits with no evidence ofintrahepatic biliary dilatation or mass. Portal vein patent. No mesenteric lymphadenopathy or evidence of small bowel obstruction. Nofree fluid or free air. No evidence of retroperitoneal lymphadenopathy. No evidence of an abdominal aortic aneurysm. Scattered fecal material and gas throughout the colon without evidence ofmass or dilatation. Appendix not inflamed. Pelvis: Opacified urinary bladder without gross abnormality. Uteruswithout focal mass. Thickened endometrium again identified at 1.2 cm.Please see pelvic ultrasound of 05/28/2024. On bone windows, no evidence of suspicious skeletal lesion or acutecompression fracture deformity. Limited evaluation of the lower thorax demonstrates no acute abnormality.Stable multiple noncalcified less than 3 mm nodules in both lung bases.Follow-up with CT chest. IMPRESSION: There are 2 less than 1 cm lesions within the left kidney. Difficult tocharacterize as detailed above. Follow-up with MRI of the kidneys. Follow-up with CT chest for lung base nodules. Ordered By: YVETTE COLON Interpreted By: Gurjit Tyler, 06/28/2024 10:23 AM us Yvette Colon DRY GOODS INSPECTOR CT Final Result * US PELVIC NON OB COMP TA+TV (05/28/2024 2:24 PM CONSUMER LENDER) Anatomical Region Laterality Modality Pelvis Ultrasound 05/29/2024 8:28 AM CONSUMER LENDER Impressions 05/29/2024 8:30 AM CONSUMER LENDER Impression: 1. Thickened endometrium with endometrial fluid measuring up to 1.4 cm. Recommend ASSURANCE SOURCING MANAGER consultation for tissue sampling. 2. Normal sonographic appearance of the ovaries. Ordered By: YVETTE COLON Interpreted By: Maverick Melendrez MD, 05/29/2024 8:28 AM Narrative 05/29/2024 8:30 AM CONSUMER LENDER [facility] [address] [place] [address] Procedure: US PELVIC NON OB COMP TA+TV Indication: thickened endometrium on CT ?? Comparison: CT abdomen pelvis 05/01/2024 Technique: Both transabdominal and transvaginal ultrasound were performed of the pelvis. Transabdominal images provide a more complete overview of the pelvis, allowing visualization of anatomy and detection of pathology located beyond the field of view of transvaginal ultrasound. Transvaginal images provide superior resolution, facilitating improved characterization of pelvic structures and detection of pathology too small to be seen at transabdominal ultrasound. If both studies had not been performed, the likelihood of detecting and characterizing abnormalities relevant to the patients condition would have been substantially decreased. Color Doppler and spectral Doppler were performed of the ovaries. Findings: UTERUS: ??The uterus is retroverted. It measures 5.6 x 2.9 x 4.6 cm. The endometrium is thickened and contains fluid and measures 1.4 cm. RIGHT ADNEXA: The right ovary appears normal. The right ovary measures 2.2 x 1.3 x 1.0 cm. ??Arterial and venous waveforms are documented in the right ovary. LEFT ADNEXA: The left ovary appears normal. The left ovary measures 1.7 x 0.9 x 1.5 cm. Arterial and venous waveforms are documented in the left ovary. OTHER: There is no free fluid in the pelvis. The urinary bladder is decompressed. Procedure Note Maverick Melendrez MD - 05/29/2024 [facility] [address] [place] [address] Procedure: US PELVIC NON OB COMP TA+TV Indication: thickened endometrium on CT Comparison: CT abdomen pelvis 05/01/2024 Technique: Both transabdominal and transvaginal ultrasound were performedof the pelvis. Transabdominal images provide a more complete overview ofthe pelvis, allowing visualization of anatomy and detection of pathologylocated beyond the field of view of transvaginal ultrasound. Transvaginalimages provide superior resolution, facilitating improved characterizationof pelvic structures and detection of pathology too small to be seen attransabdominal ultrasound. If both studies had not been performed, thelikelihood of detecting and characterizing abnormalities relevant to thepatients condition would have been substantially decreased. Color Dopplerand spectral Doppler were performed of the ovaries. Findings: UTERUS: The uterus is retroverted. It measures 5.6 x 2.9 x 4.6 cm. Theendometrium is thickened and contains fluid and measures 1.4 cm. RIGHT ADNEXA: The right ovary appears normal. The right ovary measures 2.2 x 1.3 x 1.0cm. Arterial and venous waveforms are documented in the right ovary. LEFT ADNEXA: The left ovary appears normal. The left ovary measures 1.7 x 0.9 x 1.5 cm.Arterial and venous waveforms are documented in the left ovary. OTHER: There is no free fluid in the pelvis. The urinary bladder isdecompressed. Impression: 1. Thickened endometrium with endometrial fluid measuring up to 1.4 cm.Recommend ASSURANCE SOURCING MANAGER consultation for tissue sampling. 2. Normal sonographic appearance of the ovaries. Ordered By: YVETTE COLON Interpreted By: Maverick Melendrez MD, 05/29/2024 8:28 AM us Yvette Colon DRY GOODS INSPECTOR ULTRASOUND Final Result * US RETROPERITONEAL COMP (05/28/2024 2:24 PM CONSUMER LENDER) Anatomical Region Laterality Modality Abdomen Ultrasound 05/29/2024 8:30 AM CONSUMER LENDER Impressions 05/29/2024 8:33 AM CONSUMER LENDER IMPRESSION: Left renal lesion measuring 1.0 cm is indeterminate. Consider CT abdomen with and without contrast renal protocol for definitive characterization. Ordered By: YVETTE COLON Interpreted By: Maverick Melendrez MD, 05/29/2024 8:30 AM Narrative 05/29/2024 8:33 AM CONSUMER LENDER [facility] [address] [place] [address] EXAMINATION: Ultrasound of the kidneys and urinary bladder. ? Indication: Left renal lesion seen on CT. ? Comparison: Abdomen pelvis 05/01/2024. Technique: Sonographic mueller scale and color Doppler of the kidneys and urinary bladder. ? Findings: ?? The right kidney measures approximately 10.7 cm from pole to pole. Normal cortical echogenicity and perfusion. No echogenic renal calculi or hydronephrosis. No suspicious renal lesion. The left kidney measures approximately 8.8 cm from pole to pole. Normal cortical echogenicity and perfusion. No echogenic renal calculi or hydronephrosis. Small hypoechoic exophytic lesion seen at the midportion left kidney measuring 1.0 x 0.7 x 0.6 cm. This is indeterminate. Urinary bladder is decompressed, limiting evaluation. Urinary bladder wall thickening, likely related to the underdistention, measuring 4 mm. Procedure Note Maverick Melendrez MD - 05/29/2024 [facility] [address] [facility] [place] [address] EXAMINATION: Ultrasound of the kidneys and urinary bladder. Indication: Left renal lesion seen on CT. Comparison: Abdomen pelvis 05/01/2024. Technique: Sonographic mueller scale and color Doppler of the kidneys andurinary bladder. Findings: The right kidney measures approximately 10.7 cm from pole to pole. Normalcortical echogenicity and perfusion. No echogenic renal calculi orhydronephrosis. No suspicious renal lesion. The left kidney measures approximately 8.8 cm from pole to pole. Normalcortical echogenicity and perfusion. No echogenic renal calculi orhydronephrosis. Small hypoechoic exophytic lesion seen at the midportionleft kidney measuring 1.0 x 0.7 x 0.6 cm. This is indeterminate. Urinary bladder is decompressed, limiting evaluation. Urinary bladder wallthickening, likely related to the underdistention, measuring 4 mm. IMPRESSION: Left renal lesion measuring 1.0 cm is indeterminate. Consider CT abdomenwith and without contrast renal protocol for definitivecharacterization. Ordered By: YVETTE COLON Interpreted By: Maverick Melendrez MD, 05/29/2024 8:30 AM us Yvette Colon DRY GOODS INSPECTOR ULTRASOUND Final Result * CT CHEST WO LUNG NOD FLUP (05/28/2024 12:32 PM CONSUMER LENDER) Anatomical Region Laterality Modality Chest Computed Tomogra phy 05/29/2024 12:2 9 PM CONSUMER LENDER Impressions 05/29/2024 12:35 PM CONSUMER LENDER Impression: Multiple 3 mm or less pulmonary nodules. The ones at the lung bases are stable compared to 05/01/2024. If the patient is considered high risk for lung cancer (i.e. smoking history), an optional follow CT chest can be obtained in 12 months. If the patient is considered low risk, no specific follow-up is required per Fleischner guidelines. Ordered By: YVETTE COLON Interpreted By: Maverick Melendrez MD, 05/29/2024 12:29 PM Narrative 05/29/2024 12:35 PM CONSUMER LENDER [facility] [address] [place] [address] Procedure: CT Chest without IV Contrast Comparison: CT abdomen pelvis 05/01/2024. Indication: rectn abd CT + lung nodules ?? Technique: ??CT imaging of the chest performed without intravenous contrast. Coronal and sagittal reformatted images were generated and reviewed. 3-D maximum intensity projection (MIP) reconstructions were performed of the chest to potentially increase study sensitivity. A dose lowering technique was utilized for this procedure which may include but is not limited to dose reduction techniques, automated exposure control, and/or the use of iterative reconstruction in accordance with ALARA principle. Findings: - Chest wall and Thoracic Inlet: No masses or lymphadenopathy. - Mediastinum and Naty: No masses or lymphadenopathy. - Thoracic Vessels: Normal caliber of the thoracic aorta and main pulmonary artery. ??Mild atherosclerotic plaque. - Heart and Pericardium: Normal heart size. ??No pericardial effusion. ??Mild calcifications of the aortic valve leaflets. - Lungs and Airways: Scattered calcified granulomatous disease. Multiple subcentimeter pulmonary nodules. For reference: - 2 mm nodule right lower lobe (series 3 image 75), stable. - 2 mm nodule left lower lobe (series 3 image 69), stable. - 3 mm nodule right middle lobe (series 3 image 45), stable. - 2 mm nodule right upper lobe (series 3 image 32), not previously included in the field of view. - Pleura: No pleural effusions. - Upper Abdomen: Large hiatal hernia. No acute findings. Status post cholecystectomy. Tiny subcentimeter hypoattenuating focus in the lateral aspect of the left kidney measuring approximately 5 mm. This appears to demonstrate fluid attenuation (5 Hounsfield units), compatible with a benign simple cyst. - Musculoskeletal: ??No aggressive appearing osseous lesions. ??Mild thoracic spondylosis. Procedure Note Maverick Melendrez MD - 05/29/2024 [facility] [address] [facility] [place] [address] Procedure: CT Chest without IV Contrast Comparison: CT abdomen pelvis 05/01/2024. Indication: rectn abd CT + lung nodules Technique: CT imaging of the chest performed without intravenouscontrast. Coronal and sagittal reformatted images were generated andreviewed. 3-D maximum intensity projection (MIP) reconstructions wereperformed of the chest to potentially increase study sensitivity. A doselowering technique was utilized for this procedure which may include butis not limited to dose reduction techniques, automated exposure control,and/or the use of iterative reconstruction in accordance with ALARAprinciple. Findings: - Chest wall and Thoracic Inlet: No masses or lymphadenopathy. - Mediastinum and Naty: No masses or lymphadenopathy. - Thoracic Vessels: Normal caliber of the thoracic aorta and mainpulmonary artery. Mild atherosclerotic plaque. - Heart and Pericardium: Normal heart size. No pericardial effusion.Mild calcifications of the aortic valve leaflets. - Lungs and Airways: Scattered calcified granulomatous disease. Multiplesubcentimeter pulmonary nodules. For reference: - 2 mm nodule right lower lobe (series 3 image 75), stable. - 2 mm nodule left lower lobe (series 3 image 69), stable. - 3 mm nodule right middle lobe (series 3 image 45), stable. - 2 mm nodule right upper lobe (series 3 image 32), not previouslyincluded in the field of view. - Pleura: No pleural effusions. - Upper Abdomen: Large hiatal hernia. No acute findings. Status postcholecystectomy. Tiny subcentimeter hypoattenuating focus in the lateralaspect of the left kidney measuring approximately 5 mm. This appears todemonstrate fluid attenuation (5 Hounsfield units), compatible with abenign simple cyst. - Musculoskeletal: No aggressive appearing osseous lesions. Mildthoracic spondylosis. Impression: Multiple 3 mm or less pulmonary nodules. The ones at the lung bases arestable compared to 05/01/2024. If the patient is considered high risk forlung cancer (i.e. smoking history), an optional follow CT chest can beobtained in 12 months. If the patient is considered low risk, no specificfollow-up is required per Fleischner guidelines. Ordered By: YVETTE COLON Interpreted By: Maverick Melendrez MD, 05/29/2024 12:29 PM Yvette Colon DRY GOODS INSPECTOR CT Final Result * HEMOGLOBIN, GLYCOSYLATED (05/06/2024) HGB A1C 5.3 % [id number] [facility] 05/06/2024 Yvette Colon DRY GOODS INSPECTOR LABORATORY Final Result Performing Organization Address [facility] Co de Phone Number [phone] [facility] [address] [place] [address], * (ABNORMAL) LIPID PANEL (09/26/2022 5:06 AM CONSUMER LENDER) CHOLESTEROL 136 <200 MG/DL 09/26/2022 5:43 AM CONSUMER LENDER [facility] TRIGLYCERIDES 199(H) <150 MG/DL 09/26/2022 5:43 AM CONSUMER LENDER [facility] HDL 35(L) >40.0 MG/DL 09/26/2022 5:43 AM CONSUMER LENDER [facility] LDL (CALCULATED) 61 <100 MG/DL 09/26/2022 5:43 AM [facility] NON HDL CHOLESTEROL 101 <130 MG/DL 09/26/2022 5:43 AM [facility] CHOL/HDL RATIO 3.9 0.0 - 4.5 09/26/2022 5:43 AM [facility] VLDL CALCULATION 40 5 - 55 MG/DL 09/26/2022 5:43 AM [facility] LIPID INTERPRETATION 09/26/2022 5:43 AM [facility] Comment: [facility] CONCENSUS REPORT RECOMMENDATIONS: ?ADULT ?CHILD ??LOW RISK: ?CHOLESTEROL ? <200 ? <170 ?TRIGLYCERIDE ?<150 ?--- ?HDL ? >=60 ?--- ?LDL ? <100 ? <110 ??BORDERLINE: ?CHOLESTEROL ? 200-239 ?? 170-199 ?TRIGLYCERIDE ?150-199 ? --- ?HDL ?40-59 ?--- ?LDL ? 100-159 ?? 110-129 ??HIGH RISK: ?CHOLESTEROL ? >=240 ?>=200 ?TRIGLYCERIDE ?>=200 ? --- ?HDL ?<40 ?--- ?LDL ? >=160 ?>=130 09/26/2022 5:06 AM CONSUMER LENDER Hira Antonio MD LABORATORY Final Result [facility] [address] [place] [address], from Last 3 Months or Most Recently Relevant to Health Maintenance Insurance [facility] Advance Directives * Full Code (Latest Code Status on File) Date Activated Date Inactivated Comments 09/25/2022 7:03 PM 09/27/2022 2:44 PM * Full Code Date Activated Date Inactivated Comments 08/10/2017 10:02 AM 08/10/2017 8:41 PM * DNR Date Activated Date Inactivated Comments 08/10/2017 12:13 AM 08/10/2017 10:02 AM Care Teams Bolting Machine Operator Relationship Specialty [place] [address] [place] [address] PCP - General Nurse Practitioner Family 11/06/23 [place] [address] [place] [address] Consulting Physician CARDIOVASCULAR DISEASE 11/27/23
--- OUTSIDE RECORDS SUMMARY | 2024-08-27 11:52 | XMS_ITS | Clinical Summary ---
Author Organization [facility] Address [address] [place] [address] Care Team Providers Care Butter Maker Name Role Phone Yvette Colon Rob TEST DIRECTOR Primary Care Provide r Allergies Active Allergy Reactions Criticality Noted Date Comments Aspirin Hives,Rash Medium 06/19/2017 Rash Encounters Date Type Department Care Team Description 06/26/[address] [facility] Obstetrics and Gynecology [facility] Outpatient Health 7th Floor [address] [place] [address] Mamie Mejia from Last 3 Months Social History Tobacco Use Types Packs/Day Years Used Date Smoking Tobacco: Never Assessed Personal Safety Answer Date Recorded Getting School Help Needed Not on file 10/07 Comments No Sex and Gender Information Value Date Recorded Sex Assigned at Not on file Legal Sex Female 6:37 PM ORDER BOOKER Gender Identity Not on file Sexual Orientation [...] 02/10/2022 3:01 PM CDT Plan of Treatment Health Maintenance Due Date Last Done Comments Colon Cancer Screening-Colonoscopy 1961 Depression Screening 1961 Hepatitis C Screening 1961 DTaP/Tdap/Td Vaccine (1 - Tdap) 1972 Regular Well Visit/Exam 18-64 1979 Zoster Vaccine (1 of 2) 2011 Covid-19 Vaccine (5 - season) 2024 08/04/2021, 06/23/2021, 12/22/2020, Additional history exists Influenza Vaccine (#1) 2024 , 09/02/2021, 07/14/2020, Additional history exists Breast Cancer Screening-Mammogram 06/02/2024 06/02/2023 Pneumococcal vaccine <65 Aged Out No longer eligible based on patient's age to complete this topic Insurance [employer] MEDICARE PPO [employer] MED[employer]ARE PPO [employer] MEDICARE PPO Care Teams Butter Maker Relationship Specialty [place] [address] [address] [address] PCP - General Nurse Practitioner 02/14/24
--- OUTSIDE RECORDS SUMMARY | 2024-08-27 11:52 | XMS_ITS | Encounter Summary ---
Author Organization [facility] Address [facility]. [place], [place] [address] [place] [address] Care Team Providers Care Drug Safety Physician Name Role Phone None, Provider Primary Care Provider Raina hwang None, Provider Primary Care Provider Unavaila ble Yvette Colon SEAFOOD MANAGER Primary Care Provider [phone] Christ Niño MD Unavailable [phone] Encounter Details Date Type Department Care Team (Latest Contact Info) Description 05/29/2018 Abstract [facility] , Kaur Moctezuma MD Social History Tobacco Use Types Packs/Day Years Used Date Smoking Tobacco: Never Smokeless Tobacco: Never Alcohol Use Standard Drinks/Week Comments No 0 (1 standard drink = 0.6 oz pur e alcohol) Comments No Sex and Gender Information Value Date Recorded Sex Assigned at Female 08/14/2024 11:46 AM OSHA INSPECTOR Legal Sex Female 4:40 PM CDT Gender Identity Not on file Sexual Orientation Not on file documented as of this encounter Plan of Treatment Upcoming Encounters Date Type Department Care Team (Latest Contact Info) Description 09/03/2024 10:15 AM OSHA INSPECTOR Office Visit [facility] [address] [place] [phone] Christ Niño MD 3 [facility] [address] [facility] [place] [address] 09/03/2024 1:45 PM OSHA INSPECTOR Appointment [facility] [address] [place] [address] [place] [address] [facility] [address] [place] [address] [place] [address] [place] [address] 09/06/2024 1:45 PM OSHA INSPECTOR Appointment [facility] [address] [place] [address] Yvette Colon, SEAFOOD MANAGER [address] [facility] [address] [place] [address] [place] [address] [place] [address] 09/09/2024 1:00 PM OSHA INSPECTOR Appointment [facility] [address] [place] [address] Yvette Colon, MALIA [address] [facility] [address] [place] [address] [place] [address] [place] [address] 09/10/2024 2:20 PM OSHA INSPECTOR Office Visit [facility] Internal [facility] - [place] [address] [place] [phone] Yvette Colon, MALIA [address] [facility] [address] [place] [address] 09/11/2024 11:35 AM OSHA INSPECTOR Hospital Encounter [facility] [address] [place] [address] Iban Rhodes MD 3 [facility] [address] [place] [address] 09/11/2024 11:35 AM OSHA INSPECTOR - 09/11/2024 12:00 PM OSHA INSPECTOR Surgery [facility] [address] [place] [address] Iban Rhodes MD 3 [facility] [address] [place] [address] EGD 09/12/2024 1:00 PM OSHA INSPECTOR Appointment [facility] [address] [place] [address] Yvette Colon, SEAFOOD MANAGER [address] [facility] [place] [address] [place] [address] [place] [address] 09/16/2024 1:00 PM OSHA INSPECTOR Appointment [facility] [address] [place] [address] Yvette Colon, SEAFOOD MANAGER [address] [facility] [place] [address] [place] [address] [place] [address] 09/19/2024 1:45 PM OSHA INSPECTOR Appointment [facility] [address] [place] [address] Yvette Colon, SEAFOOD MANAGER [address] [place] [address] [place] [address] [place] [address] 09/23/2024 2:00 PM OSHA INSPECTOR Appointment [facility] [address] [place] [address] Yvette Colon, SEAFOOD MANAGER [address] [facility] [place] [address] [place] [address] [place] [address] 09/26/2024 1:00 PM OSHA INSPECTOR Appointment [facility] [address] [place] [address] Yvette Colon, SEAFOOD MANAGER [address] [facility] [address] [place] [address] [place] [address] [place] [address] 10/04/2024 1:00 PM CDT Appointment [facility] Outpatient [facility] [address] [place] [address] Yvette Colon, SEAFOOD MANAGER [address] [facility] [address] [facility] [place] [address] [place] [address] [place] [address] Scheduled Procedures Name Priority Associated Diagnoses Date/Ti me EGD Hiatal hernia 09/11/2024 11:35 AM OSHA INSPECTOR documented as of this encounter Visit Diagnoses Not on filedocumented in this encounter Additional Health Concerns Infection Onset Date Last Indicated Resolved Time COVID-19 Rule Out 10/31/2023 10/31/2023 10/31/2023 4:17 PM CDT documented as of this encounter Care Teams Drug Safety Physician Relationship Specialty Start Date End Date None, Provider, PCP - General 09/28/18 09/08/22 None, Provider, MD PCP - General UNKNOWN PHYSICIAN SPECIALTY 09/09/22 11/05/23 [place] [address] [place] [address] PCP - General Nurse Practitioner Family 11/06/23 [place] [address] [place] [address] Consulting Physician CARDIOVASCULAR DISEASE 11/27/23 documented as of this encounter
--- NOTE | 2024-08-27 12:38 | ED_ITS ---
HPI - URI/Sore Throat General Chief Complaint: Upper Respiratory Infection Stated Complaint: Sore throat Time Seen by Provider: 08/27/24 12:38 Source: patient, RN notes reviewed and old records reviewed Mode of arrival: ambulatory Limitations: no limitations History of Present Illness HPI Narrative: patient presents with 7-10 days of postnasal drainage, sinus congestion, sore throat, ear discomfort. She reports that she is more tired than usual. She denies any fever, chills, sweats. She denies any injury or trauma. Voices no other concerns or complaints today. Related Data Home Medications ?Medication ?Instructions ?Recorded ?Confirmed ?Last Taken ?Type atorvastatin 40 mg tablet mg 04/05/24 Unknown History hydrocodone 5 mg-acetaminophen 325 tablet 04/05/24 Unknown History mg tablet levothyroxine 50 mcg tablet mcg 04/05/24 Unknown History Allergies Allergy/AdvReac Type Severity Reaction Status Date / Time aspirin Allergy Rash Verified 08/27/24 12:26 Review of Systems Review of Systems: All systems reviewed & are unremarkable except as noted in HPI and below Constitutional: Constitutional: Reports as per HPI and Reports no additional constitutional complaints ENT: Reports system reviewed and no additional complaints, except as documented and Reports as per HPI Cardiovascular: Cardiovascular: Reports no additional cardiovascular complaints Respiratory: Respiratory: Reports as per HPI and Reports no additional re spiratory complaints Gastrointestinal: Gastrointestinal: Reports no additional gastrointestinal complaints [facility] Past Medical History Medical History (Updated 08/27/24 @ 12:52 by Eleanor Bryant APRN) Anxiety and depression Osteoarthritis of right hip Elevated cholesterol Hypothyroidism CHF (congestive heart failure), NYHA class II COPD (chronic obstructive pulmonary disease) reports never smoked Chronic kidney disease, stage III (moderate) Social History Social History Smoking status: Never smoker Substance use type: does not use Gender identity (if verbalized by the patient): Female Comments At the time of my signature, I reviewed and agree with the nursing past medical, surgical, social, and family history. There is no relevant family history pertinent to the patient complaint. Exam Narrative: History and exam consistent with sinusitis. Patient nontoxic appearing, stable for discharge home on p.o. antibiotic therapy. Discharge instructions reviewed with patient, as well as provided in writing per nursing staff. The instructions also include specific and strict return/GO TO THE ER as well as f/u information. All questions have been answered, and the patient deny any further questions with discharge and discharge plan. Some parts of this dictation were generated by voice recognition software and may contain typographical and/or grammatical inaccuracies. Const: General: cooperative, no acute distress, alert and awake Orientation/consciousness: oriented to person, oriented to place and oriented to time HENMT: Head: normal to inspection Ears: TM abnormal dull bilateral and with fluid behind the TM bilateral Face and sinus: sinus tenderness Mouth: Yes moist mucous membranes Throat: posterior oropharynx abnormal erythema and postnasal drainage Resp: Effort & Inspection: normal respiratory effort and able to speak in complete sentences Auscultation: clear to auscultation bilaterally, no crackles, no rales, no rhonchi and no wheezes Cardio: Palpation: normal PMI Rate: regular rate Rhythm: regular rhythm Heart sounds: S1 normal heart sound present and S2 normal heart sound present Neuro: General: oriented to person, oriented to place and oriented to time Cranial nerves: Yes CN's II-XII intact bilaterally Psych: Appearance: grossly normal Thought process: Normal thought process present Insight: Good insight present (Psych) Judgement: Good judgement present (Psych) Course Course Level of Care: Express Care Visit Vital Signs Vital signs: Vital Signs Temperature 97.7 F 08/27/24 11:29 Pulse Rate 72 08/27/24 11:29 Respiratory Rate 18 08/27/24 11:29 Blood Pressure 88/56 L 08/27/24 11:29 Pulse Oximetry 97 08/27/24 11:29 Oxygen Delivery Room Air 08/27/24 11:29 Temperature 97.7 F 08/27/24 11:29 Pulse Rate 72 08/27/24 11:29 Respiratory Rate 18 08/27/24 11:29 Blood Pressure 88/56 L 08/27/24 11:29 Pulse Oximetry 97 08/27/24 11:29 Oxygen Delivery Room Air 08/27/24 11:29 Reviewed Discharge Plan Discharge Clinical Impression: Sinusitis Qualifiers: Sinusitis location: frontal Chronicity: acute Recurrence: not specified as recurrent Qualified Code(s): J01.10 - Acute frontal sinusitis, unspecified Patient Disposition: Home, Self-Care Condition: Stable Instructions: Antibiotic Form, Sinusitis (ED) Additional Instructions: Take medication as prescribed. Follow with primary care provider. Emergency department for new or worse symptoms Patient Language: Japanese Prescriptions: New amoxicillin-pot clavulanate 875-125 mg tablet 1 tablet PO Q12H Qty: 20 0RF No Action atorvastatin 40 mg tablet hydrocodone-acetaminophen 5-325 mg tablet levothyroxine 50 mcg tablet Follow-up/Referrals: PHYSICIAN,NURSE ORTHOPAEDIC [Primary Care Provider] - Time of Disposition: 12:53
[2024-08-27 12:49] LABS: EDSTREPNEGPOS1 Negative (Negative)
== END 2024-08-27 13:02 | disposition home or self-care (01) ==
PROVIDERS: Emergency Provider Nurse Practitioner Family
DX: J01.10 Acute frontal sinusitis, unspecified (principal); E03.9 Hypothyroidism, unspecified; I50.9 Heart failure, unspecified; N18.30 Chronic kidney disease, stage 3 unspecified; F41.8 Other specified anxiety disorders; J44.9 Chronic obstructive pulmonary disease, unspecified
CPT/HCPCS: 87081; 87880; 99213; G0463